=== PATIENT | male | born 1955 ===

== ENCOUNTER 2025-03-29 08:39 | Outpatient (AMB) | payer OTHER, SELFPAY ==
--- OUTSIDE RECORDS SUMMARY | 2025-03-29 08:51 | XMS_ITS | Clinical Summary ---
Author Organization [address] [place] [address] Address [address] [place] [address] Phone Care Team Providers Care Line Mechanic Name Role Phone Tristan Cody MD Primary Care Provider [phone] Allergies No known active allergies Active Problems Problem Noted Date Diagnosed Date Fatty liver 03/30/2018 Hyperlipidemia 03/30/2018 Nephrolithiasis 03/30/2018 Overview (10/03/2024): 2016 Sebaceous cyst 03/30/2018 Medical History Medical History Date Comments Sebaceous cyst 03/30/2018 DX:Sebaceous cys t Hyperlipidemia 03/30/2018 DX:Hyperlipidemi a Nephrolithiasis 03/30/2018 DX:Nephrolithias is; COMMENT: 2016 History of poliomyelitis 03/30/2018 DX:Hist ory of poliomyelitis Fatty liver 03/30/2018 DX:Fatty liver Family History Medical History Relation Name Comments Stomach cancer Father No Known Problems Mother Relation Name Status Comments Father (Age 85) Mother Alive Social History Tobacco Use Types Packs/Day Years Used Date Smoking Tobacco: Never Smokeless Tobacco: Never Sex and Gender Information Value Date Recorded Sex Assigned at Not on file Legal Sex Male 11:31 PM EST Gender Identity Not on file Sexual Orientation Not on file Obstetrics History Last Filed Vital Signs Vital Sign Reading Time Taken Comments Blood Pressure 130/60 02/10/2022 9:47 AM EDT Pulse 76 02/10/2022 9:47 AM EDT Temperature - - Respiratory Rate - - Oxygen Saturation - - Inhaled Oxygen Concentration - - Weight 77.1 kg (170 lb) 11/19/2024 8:45 AM EDT Height 167.6 cm (5' 5.98 ) 11/19/2024 8:45 AM ED T Body Mass Index 27.45 11/19/2024 8:45 AM EDT Plan of Treatment Health Maintenance Due Date Last Done Comments Hepatitis A Vaccines (1 of 2 - Risk 2-dose series) 11/13/1975 Hepatitis B Vaccines (1 of 3 - Risk 3-dose series) 2016 RSV Immunization Adult Patients (1 - Risk 60-74 years 1-dose series) 2016 Colorectal Cancer Screening: Colonoscopy 08/01/2022 Falls Risk Assessment 08/01/2022 Medicare Annual Wellness Visit 08/01/2022 Social Influencers of Health Screening 08/01/2022 COVID-19 Vaccine ( season) 2024 02/23/2021, 01/27/2021 Depression Screening 08/29/2024 Influenza Vaccine (#1) 2025 05/19/2016 Cholesterol Screening (Lipid Panel) 01/26/2029 01/27/2024, 01/27/2024, 11/24/2022, Additional history exists DTaP,Tdap,and Td Vaccines (3 - Td or Tdap) 02/22/2032 02/21/2022, 03/08/2019 Hepatitis C Screening Completed 01/18/2022, 018 Pneumococcal Vaccine: 50+ Years Completed 01/27/2024, 11/24/2022 Zoster Vaccines Completed 01/27/2024, 11/24/2022 HIB Vaccines Aged Out No longer eligi ble based on patient's age to complete this topic HPV Vaccines Aged Out No longer eligi ble based on patient's age to complete this topic IPV Vaccines Aged Out No longer eligi ble based on patient's age to complete this topic MMR Vaccines Aged Out No longer eligi ble based on patient's age to complete this topic Meningococcal ACWY Vaccine Aged Out N o longer eligible based on patient's age to complete this topic Meningococcal B Vaccine Aged Out No l onger eligible based on patient's age to complete this topic RSV Immunization Patients Under 20 months Aged Out No longer eligible based on patient's age to complete this topic Varicella Vaccines Aged Out No longer eligible based on patient's age to complete this topic Insurance MED[place] - [place] [facility] [employer] Care Teams Line Mechanic Relationship Specialty Start Date End Date Tristan Cody MD [address] [place] [address] PCP - General Internal Medicine 09/25/24
--- OUTSIDE RECORDS SUMMARY | 2025-03-29 08:51 | XMS_ITS | Clinical Summary ---
Author Organization [facility] Address [address] [place] [address] Care Team Providers Care Correctional Officer Lieutenant Name Role Phone Ena Prieto NP Primary Care Provider [phone] Source Comments PLEASE NOTE, if this patient is a minor, it may be UNLAWFUL to discuss sensitive information that is contained in these records (such as FAMILY PLANNING, MENTAL HEALTH or SUBSTANCE ABUSE) with the minor patient's parent or other person without the patient's specific authorization.[facility] Allergies No known active allergies Medications traZODone (DESYREL) 50 mg tabletIndications: Other insomnia TOME 1 TABLETA POR VIA ORAL TODOS LOS KEYES AL ACOSTARSE 90 Tablet 08/30/19 25 Active MISCELLANEOUS MEDICAL SUPPLY MISCIndications:Ot her urinary incontinence by miscellaneous route 4 (four) times daily Pull ups medium size Diagnosis 39.498 120 Each 3 09/03/19 25 Active MISCELLANEOUS MEDICAL SUPPLY MISCIndications:Ot her urinary incontinence by miscellaneous route 4 (four) times daily Wipes Medium size Diagnosis 39.498 120 Each 3 09/03/19 25 Active tolterodine (DETROL) 2 mg tabletIndications: Other urinary incontinence TOME 1 TABLETA POR VIA ORAL DOS VECES AL JULI 180 Tablet 1 09/26/19 25 Active benzocaine-menthoL (CEPACOL SORE THROAT, SUKHDEV-MEN,) 15-3.[address] 1 Lozenge in mouth every 2 (two) hours as needed (sore throat). 16 Lozenge 02/12/20 25 Active tamsulosin (FLOMAX) 0.4 mg 24 hr capsule Take 1 Capsule by mouth once daily TOME 1 CAPSULA POR VIA ORAL ONCE DAILY. 90 Capsule 1 02/12/20 25 Active fluticasone (FLONASE) 50 mcg/actuation nasal sprayIndications:P ND (post-nasal drip) Place 1 [place] in both nostrils once daily. 16 g 02/12/20 25 Active atorvastatin (LIPITOR) 20 mg tabletIndications: Mixed hyperlipidemia TOME 1 TABLETA POR VIA ORAL TODOS [place] 90 Tablet 02/26/20 25 Active Active Problems Problem Noted Date Diagnosed Date Multinodular goiter 02/01/2024 Other mixed anxiety disorders 11/24/2022 Overview (11/24/2022): Sees N Internal hemorrhoid 10/29/2015 Overview (10/29/2015): [facility] 10[facility]16[facility]15[place] Small non-bleeding grade 1 Internal Hemorrhoids were noted. Rec f/u in 10yrs Type 2 diabetes mellitus wit hout complication, without long-term current use of insulin ([facility]) 06/13/2015 Overview (03/02/2024): Last A1c 6.0 Hyperlipidemia 06/13/2015 Benign prostatic hyperplasia without lower urinary tract symptoms 06/12/2015 Overview (06/12/2015): He was told to have enlarged prostate with elevated PSA level in CT abt 2 yrs ago. He had blood in urine abt 2 yrs ago. None after that. No Bx of prostate as per pt. C/o burning, freqency, urgency. No significant nocturia. No meds for prostate so far. Uses some natural medicine. History of nephrolithiasis 06/12/2015 Overview (06/12/2015): Last episode abt 2-[address] Was told to have stones in one kidney and cyst on other kidney( not sure which side). Fatty liver 06/12/2015 Overview (06/12/2015): Was told in CT abt 3 yrs ago, as per pt he used some meds as well. Was told that it was sec to some parasite. He was heavy alcoholic in the past but not recently( last 10 yrs). H/O poliomyelitis 06/12/2015 Resolved Problems Problem Noted Date Diagnosed Date Resolved Date Dyslipidemia (high LDL; low HDL) 03/14/2018 01/27/2024 Renal cyst 11/15/2016 03/08/2019 Left epididymitis 08/09/2016 03/08/2019 Overview (08/17/2016): Went to [facility] ER on 07/01/16 with dysuria, testicular pain and swelling. He has had subjective fevers and chills. UA significant for UTI. US Testicular done 07/01/16 at [facility] . Impression: Left epididymitis. No testicular torsion or intratesticular focal mass lesion identified on this exam. He was discharged with Cipro to f/u as outpt Constipation 05/19/2016 06/20/2018 Urinary tract infection with hematuria 03/05/2016 03/08/2019 Overview (11/11/2016): 02/2016: Cx grew ESBL E coli. >>He went to [facility] ER on 10/25/16 with abd pain, urgency, hematuria. Subjective fever, chills. Had labs, CT scan and was discharged with po Cipro to f/u with urology as outpt. CT abd/pelvis at [facility] on 10/25/16- Nonobstructing right lower pole renal calculi. Calcifications affecting the seminal vesicles bilaterally, left greater than right suggestive of sequela of prior inflammation. 9.5 cm maximum diameter right renal cyst with displacement of right kidney anteriorly and medially. Degenerative changes within the caudal lumbar spine. Encounters Date Type Department Care Team Description 02/12/2025 Results Follow-Up [address] [phone] Ena Prieto NP 02/11/2025 10:40 AM EDT Office Visit [address] [phone] Ena Prieto NP from Last 3 Months Immunizations Immunization Administration Dates Next Due INFLUENZA, SEASONAL, INJECTABLE 05/19/2016 PNEUMOCOCCAL CONJUGATE PCV 20 (Prevnar 20) 01/26 PNEUMOCOCCAL POLYSACCHARIDE PPV23 (Pneumovax 23) 11/24/2022 TDAP 02/21/2022,03/08/2019 ZOSTER VACCINE, RECOMBINANT (SHINGRIX) ,11/24/2022 Family History Medical History Relation Name Comments Cancer Brother lymphoma Cancer Father stomach ca Diabetes Father Hypertension Father High Cholesterol Mother Hypertension Mother Cancer Sister Lymphoma, Breas t ca Relation Name Status Comments Brother Father Mother Alive Sister Alive Social History Tobacco Use Types Packs/Day Years Used Date Smoking Tobacco: Never Passive Smoke Exposure: Never Smokeless Tobacco: Never Alcohol Use Standard Drinks/Week Comments Yes 0 (1 standard drink = 0.6 oz pure alcohol) occasionally 1-2 glasses of wine Social Connections Answer Date Recorded Connectedness 1 01/27/2024 Financial Resource Strain Answer Date R ecorded Financial Resource Strain 1 2023 Stress Answer Date Recorded Stress 1 01/27/2024 Physical Activity Answer Date Recorded Physical Activity 0 04/22/2019 Food Insecurity Answer Date Recorded Food 1 01/27/2024 Transportation Needs Answer Date Record ed Transportation 1 01/27/2024 Housing Stability Answer Date Recorded Housing 1 01/27/2024 Safety and Environment Answer Date Heber rded Safety 1 01/27/2024 Utilities Answer Date Recorded Utilities 1 01/27/2024 Employment Answer Date Recorded Stress 0 01/27/2024 Sex and Gender Information Value Date Recorded Sex Assigned at Male 08/08/2017 9:40 AM PST Legal Sex Male 11:19 AM PDT Gender Identity Male 08/08/2017 9:40 AM PST Sexual Orientation Straight 08/08/2017 9: 40 AM PST Occupation Industry Job Start Date Job End Date not employed now Not on file Not on file Not on file Last Filed Vital Signs Vital Sign Reading Time Taken Comments Blood Pressure 110/80 02/11/2025 10:36 AM EDT Pulse 61 02/11/2025 10:36 AM EDT Temperature 37.1 C (98.7 F) 02/11/2025 10:36 AM EDT Respiratory Rate 16 02/11/2025 10:36 AM EDT Oxygen Saturation 97% 09/03/2024 11:04 AM EST Inhaled Oxygen Concentration - - Weight 72.7 kg (160 lb 3.2 oz) 02/11/2025 10:36 AM EDT Height 165.1 cm (5' 5 ) 02/11/2025 10:36 AM EDT Body Mass Index 26.66 02/11/2025 10:36 AM EDT Plan of Treatment Upcoming Encounters Date Type Department Care Team (Late st Contact Info) Description 05/21/2025 1:00 PM EDT Office Visit [facility] [address] [place] [phone] Jesús Hermosillo RHD [address] [place] [address] Health Maintenance Due Date Last Done Comments Diabetes Foot Exam 1956 Urine Albumin Creatinine Ratio Screening 1956 Retinopathy Screening 1969 Medicare Annual Wellness Visit 1974 CT Colonography 2001 FIT/gFOBT 2001 Fecal DNA 2001 Flexible Sigmoidoscopy 2001 Imm-Hepatitis B (1 of 3 - Risk 3-dose series) 2016 Serum Creatinine 01/26/2025 01/27/2024, , 11/24/2022, Additional history exists Falls Prevention 03/02/2025 03/02/2024, , 02/05/2022, Additional history exists Imm-Influenza (#1) 2025 05/19/2016 Dental Prophy 05/20/2025 11/15/2024, 04/29, 03/22/2023, Additional history exists Hemoglobin A1c 08/13/2025 02/11/2025, 11/0 03/2023, 11/24/2022, Additional history exists Imm-Hepatitis A (1 of 2 - Risk 2-dose series) 09/03/2025 Postponed from 11/13/1975 (Patient postponement) Colonoscopy 10/16/2025 10/16/2015, 10/16/2015 Colorectal Cancer Screening 10/16/2025 Dental BW 11/17/2025 11/15/2024, 07/2 12/2022, 09/22/2022 Dental Examination 11/17/2025 11/15/2024, 0 05/16/2024, 05/16/2024, Additional history exists Dental Perio Charting 11/17/2025 11/15/2024 , 03/22/2023, 09/22/2022 Hypertension Screening (#1) 02/11/2026 Lipid Screening 02/11/2026 02/11/2025, 0508/2023, 07/06/2023, Additional history exists Tobacco Screening 02/11/2026 02/11/2025, 01/27/2024 Dental FMX/Pano 11/17/2029 11/15/2024 Imm-DTaP/Tdap/Td (3 - Td or Tdap) 02/22/2032 02/21/2022, 03/08/2019 [id number] Discontinued 02/23/2021, 01/27/2021 Hepatitis B Screening Completed 01/18/2022 Hepatitis C Screening Completed 01/18/2022, 018 HIV Screening Discontinued 07/06/2023, 01/18/2022 Syphilis Screening Discontinued 07/06/2023 Imm-Pneumococcal 50+ Completed 01/27/2024, 11/25/19 Imm-Zoster, Recombinant Completed 01/27/2024, 11/24 Alcohol and Drug Screen Completed 02/12/20, 09/03/2024, 01/27/2024, Additional history exists Depression Annual Screen Completed 02/11/2025, 01/2025 Procedures Procedure Name Priority Date/Time Associated Diagnosis Comments LIPID PANEL Routine 02/11/2025 11:01 AM EDT Mixed hyperlipidemia HEMOGLOBIN GLYCOSYLATED A1C Routine 02/11/2025 11:01 AM EDT Prediabetes COMP PERIODONTAL EVALUATION - NEW/EST PATIENT Routine 11/15/2024 1:40 PM EDT Encounter for dental examination INTRAORAL - COMP SERIES OF RADIOGRAPHIC IMAGES Routine 11/15/2024 1:40 PM EDT Encounter for dental examination PROPHYLAXIS - ADULT Routine 11/15/2024 1 :40 PM EDT Encounter for dental examination PERIODIC ORAL EVALUATION ESTABLISHED PATIENT Routine 11/15/2024 1:40 PM EDT Encounter for dental examination COMPREHENSIVE METABOLIC PANEL Routine 01/27/2024 9:35 AM EDT Routine general medical examination at a [facility] care facility HIV /2 AG & AB W/RFLX (4TH GEN) Routine 07/06/2023 11:44 AM EST Screen for STD (sexually transmitted disease) FTA-ABS, SERUM Routine 07/06/2023 11:44 AM EST Screen for STD (sexually transmitted disease) ACUTE HEPATITIS PANEL W/RFLX Routine 01/18/2022 4:13 PM EDT Body aches COLONOSCOPY Routine 10/16/2015 from Last 3 Months or Most Recently Relevant to Health Maintenance Results * (ABNORMAL) HEMOGLOBIN GLYCOSYLATED A1C Routine (02/11/2025 11:01 AM EDT) HEMOGLOBIN A1C 6.8(H) <5.7 % [facility] Comment: For someone without known diabetes, a hemoglobin A1c value of 6.5% or greater indicates that they may have diabetes and this should be confirmed with a follow-up test. For someone with known diabetes, a value <7% indicates that their diabetes is well controlled and a value greater than or equal to 7% indicates suboptimal control. A1c targets should be individualized based on duration of diabetes, age, comorbid conditions, and other considerations. Currently, no consensus exists regarding use of hemoglobin A1c for diagnosis of diabetes for children. Blood Blood / Unknown 02/11/2025 1 1:01 AM EDT 02/11/2025 11:01 AM EDT Narrative [facility] - 02/12/2025 12:16 PM EDT FASTING:YES us Ena Prieto NP LAB - BLOOD DRAW Edited Resu lt - Final [facility] [address] [place] [id number], [facility] [address] [place] [phone] * (ABNORMAL) LIPID PANEL Routine (02/11/2025 11:01 AM EDT) CHOLESTEROL, TOTAL 157 <200 mg/dL [facility] HDL CHOLESTEROL 31(L) > OR = 40 mg/dL [facility] TRIGLYCERIDES 157(H) <150 mg/dL [facility] LDL-CHOLESTEROL 101(H) 99 mg/dL (calc) [facility] Comment: Reference range: <100 Desirable range <100 mg/dL for primary prevention; <70 mg/dL for patients with CHD or diabetic patients with > or = 2 CHD risk factors. LDL-C is now calculated using the Suzanne calculation, which is a validated novel method providing better accuracy than the Friedewald equation in the estimation of LDL-C. Jr SS et al. SIRENA. 2013;310(19): 3236-4725 (http://education.Qunar.com/faq/BXN623) CHOL/HDLC RATIO 5.1(H) <5.0 (calc) [facility] NON-HDL CHOLESTEROL 126 <130 mg/dL (calc) [facility] Comment: For patients with diabetes plus 1 major ASCVD risk factor, treating to a non-HDL-C goal of <100 mg/dL (LDL-C of <70 mg/dL) is considered a therapeutic option. Blood Blood / Unknown 02/11/2025 1 1:01 AM EDT 02/11/2025 11:01 AM EDT Narrative [facility] - 02/12/2025 12:16 PM EDT FASTING:YES Ena Prieto NP LAB - BLOOD DRAW Final Resul t [facility] [address] [place] [phone], [facility] [address] [place] [phone] * (ABNORMAL) COMPREHENSIVE METABOLIC PANEL (01/27/2024 9:35 AM EDT) GLUCOSE 102(H) 65 - 99 mg/dL [facility] Comment: Fasting reference interval For someone without known diabetes, a glucose value between 100 and 125 mg/dL is consistent with prediabetes and should be confirmed with a follow-up test. UREA NITROGEN (BUN) 16 7 - 25 mg/dL [facility] CREATININE (blood) 0.89 0.70 - 1.35 mg/dL [facility] EGFR 94 > OR = 60 mL/min/1. 73m2 [facility] BUN/CREATININE RATIO SEE NOTE: 6 [facility] Comment: Not Reported: BUN and Creatinine are within reference range. SODIUM 138 135 - 146 mmol/L [facility] POTASSIUM 4.3 3.5 - 5.3 mmol/L [facility] CHLORIDE 105 98 - 110 mmol/L [facility] CARBON DIOXIDE 26 20 - 32 mmol/L [facility] CALCIUM 9.5 8.6 - 10.3 mg/dL [facility] PROTEIN, TOTAL 7.4 6.1 - 8.1 g/dL [facility] ALBUMIN 4.4 3.6 - 5.1 g/dL [facility] GLOBULIN 3.0 1.9 - 3.7 g/dL (calc) [facility] ALBUMIN/GLOBULI N RATIO 1.5 1.0 - 2.5 (calc) [facility] BILIRUBIN, TOTAL 0.7 0.2 - 1.2 mg/dL [facility] ALKALINE PHOSPHATASE 51 35 - 144 U/L [facility] AST 16 10 - 35 U/L [facility] ALT 25 9 - 46 U/L [facility] Blood Blood / Unknown 01/27/2024 9 :35 AM EDT 01/27/2024 9:36 AM EDT Narrative [facility] - 01/28/2024 1:24 PM EDT FASTING:YES us Ena Prieto NP LAB - BLOOD DRAW Final Resul t [facility] [address] [address], [facility] [address] [address] * HIV 1/2 AG & AB W/RFLX (4TH GEN) (07/06/2023 11:44 AM EST) HIV AG/AB, 4TH GEN NON-REAC TIVE NON-REAC TIVE [facility] Comment: HIV-1 antigen and HIV-1/HIV-2 antibodies were not detected. There is no laboratory evidence of HIV infection. PLEASE NOTE: This information has been disclosed to you from records whose confidentiality may be protected by state law. If your state requires such protection, then the state law prohibits you from making any further disclosure of the information without the specific written consent of the person to whom it pertains, or as otherwise permitted by law. A general authorization for the release of medical or other information is NOT sufficient for this purpose. For additional information please refer to http://education.[employer]/faq/DDQ886 (This link is being provided for informational/ educational purposes only.) The performance of this assay has not been clinically validated in patients less than 2 years old. Blood Blood / Unknown 07/06/2023 1 1:44 AM EST 07/06/2023 11:44 AM EST Tristan Cody MD LAB - BLOOD DRAW Final Result Performing Organization Address City/[facility]/ZIP Co de Phone Number [facility] [address] [address], [facility] [address] [phone] * FTA-ABS, SERUM (07/06/2023 11:44 AM EST) FTA-ABS Nonreactive Nonreactive [facility] Comment: The FTA-ABS is a treponemal assay that is intended to be used with other tests (e.g., RPR) as part of a diagnostic algorithm in the diagnosis of syphilis. Blood Blood / Unknown 07/06/2023 1 1:44 AM EST 07/06/2023 11:44 AM EST Tristan Cody MD LAB - BLOOD DRAW Final Result Performing Organization Address City/[facility]/ZIP Co de Phone Number [facility] [address] [address] [place], [place] , [facility] [address] [place], [place] * HEPATITIS PANEL W/RFLX (01/18/2022 4:13 PM EDT) HEPATITIS B SURFACE ANTIGEN NON-REACT NAVYA NON-REACT NAVYA [facility] HEPATITIS C ANTIBODY NON-REACT NAVYA NON-REACT NAVYA [facility] SIGNAL TO CUT-OFF 0.08 <1.00 [facility] Comment: HCV antibody was non-reactive. There is no laboratory evidence of HCV infection. In most cases, no further action is required. However, if recent HCV exposure is suspected, a test for HCV RNA (test code 54945) is suggested. For additional information please refer to http://[employer]/faq/TGU65i2 (This link is being provided for informational/ educational purposes only.) HEPATITIS A IGM ANTIBODY NON-REACT NAVYA NON-REACT NAVYA [facility] COMMENT [facility] HEPATITIS B CORE IGM ANTIBODY NON-REACT NAVYA NON-REACT NAVYA [facility] Blood Blood / Unknown 01/18/2022 4 :13 PM EDT 01/18/2022 4:13 PM EDT Narrative [facility] - 01/19/2022 2:03 PM EDT FASTING:NO For additional information, please refer to http://Surveypal.[employer]/faq/SLV019 (This link is being provided for informational/ educational purposes only.) Irvin Yates PA-C LAB - BLOOD DRAW Final Result [facility] [address] [address], [facility] [address] [address] * COLONOSCOPY (10/16/2015) Provider [facility] PROCEDURES Final Result from Last 3 Months or Most Recently Relevant to Health Maintenance Insurance [facility] [employer] Member Subscriber Plan / Payer (Ef fective 2022-Present) Name:Ryan Moser Relation to Subscriber:Self Name:Ryan Moser Payer ID:[id number] (NAIC) Group ID:Not on file Type:Medicaid Address: [place] [id number] [facility] Care Teams Correctional Officer Lieutenant Relationship Specialty Start Date End Date Ena Prieto NP [address] [place] [address] PCP - General Internal Medicine 02/11/25
--- NOTE | 2025-03-29 09:05 | A.OFFVIS_ITS ---
Intake Visit Reasons: Urinary Incontinence Intake Note: New patient presents today for initial visit for urinary incontinence Urology Medication:none Blood Thinner:none Antibiotic Allergies:none PVR:162ml Channel Rebuilder Required: No Channel Rebuilder Services: Channel Rebuilder Offered & Declined Allergies No Known Allergies Allergy (Verified 03/29/25 09:06) HPI Comments Details: 03/29/25- Ryan is here with his daughter who interprets for him. History of Present Illness - The patient is a 69-year-old male presenting with urinary incontinence and prostate concerns. - Urinary incontinence is a daily issue, not improved by tamsulosin and tolterodine. - Prostate concerns are present, with urinalysis showing no infection or hematuria. - History of kidney stones, with an ultrasound planned for further evaluation. Results - Urinalysis: No blood or signs of infection - Bladder scan: Post-void residual volume of 162 mL Plan - Ultrasound of the kidneys, bladder, and prostate - PSA screening, fu office - Cystoscopy PFS Medical History Muscle spasm of back Fatty liver History of poliomyelitis Nephrolithiasis Hyperlipidemia Surgical History No history of previous surgery Family History Father Stomach cancer Review of Systems Const All systems reviewed & are unremarkable except as noted in HPI and below Reports no additional complaints Eyes Reports no additional complaints ENT Reports no additional complaints Card Reports no additional complaints Resp Reports no additional complaints GI Reports no additional complaints Reports as per HPI Musc Reports no additional complaints Skin/Breast Reports system reviewed and no additional complaints, except as documented Neuro Reports no additional complaints Psych Reports no additional complaints Endo Reports no additional complaints Paco/Lymph Reports no additional complaints Aller/Immun Reports no additional complaints Assessment & Plan Assessment & Plan (1) BPH loc w urin obs/LUTS: Code(s): N40.1 - Benign prostatic hyperplasia with lower urinary tract symptoms Category: Medical (2) Urinary incontinence: Code(s): R32 - Unspecified urinary incontinence Category: Medical (3) History of kidney stones: Code(s): Z87.442 - Personal history of urinary calculi Category: Medical Plan Plan - Ultrasound of the kidneys, bladder, and prostate - PSA screening, fu office - Cystoscopy Orders: Orders PSA,Total (Free>4and<10) Today N40.1 - Benign prostatic hyperplasia with lower urinary tract symptoms, R32 - Unspecified urinary incontinence US retroperitoneal comp Today N40.1 - Benign prostatic hyperplasia with lower urinary tract symptoms, R32 - Unspecified urinary incontinence Patient Instructions: The patient had an opportunity to ask questions regarding treatment plan. The patient expressed understanding and agreement with the above treatment plan. The patient is aware they should contact our office by phone for worsening of their current condition or the appearance of new symptoms. Compliance is encouraged with any medications and followup testing that is ordered. It is a privilege to be allowed the opportunity to participate in the urologic care of your patient. If you have any questions or concerns regarding treatment for the above conditions please do not hesitate to contact me. The office telephone contact is [phone]. This note is constructed in part using voice recognition software. While every effort has been made to ensure accuracy courier driver errors may have been included. Yours sincerely, Elsie Cole MD Scribe Plan - Not visible on output: Patient was informed and verbally consented to the use of an ambient scribe for clinic note documentation during this visit. Coding Level of Care Code New Pt Level 4 (85760) Diagnoses BPH loc w urin obs/LUTS N40.1 Urinary incontinence R32 History of kidney stones Z87.442
== END 2025-03-29 09:57 | disposition home or self-care (01) ==
LOC: HO.HUSH 08:40
PROVIDERS: PCP Internal Medicine; Visit Provider Urology
DX: N40.1 Benign prostatic hyperplasia with lower urinary tract symptoms (principal); R32 Unspecified urinary incontinence; Z87.442 Personal history of urinary calculi; Z13.9 Encounter for screening, unspecified
CPT/HCPCS: 99204

== ENCOUNTER → 2025-03-29 08:39 | Outpatient (BNVA) | payer OTHER, SELFPAY | PROVIDERS: PCP Internal Medicine; Visit Provider Urology | DX: N40.1 Benign prostatic hyperplasia with lower urinary tract symptoms (principal); R32 Unspecified urinary incontinence; Z87.442 Personal history of urinary calculi | CPT/HCPCS: 81003; 99202 ==

== ENCOUNTER 2025-05-14 14:27 | Outpatient (REF) | payer OTHER, SELFPAY ==
--- NOTE | ~2025-05-14 | US_ITS ---
CLINICAL HISTORY: R32 - Unspecified urinary incontinence --- Additional Notes or Special Instructions: please measure prostate US Renal Comparison: None provided Findings: Right kidney normal size and echotexture, 11.8 cm length. Left kidney normal size and echotexture, 10.7 cm length. No collecting system dilatation of either kidney. There is a 13.4 x 8.2 x 12.0 cm simple appearing cyst arising from the right kidney. There are multiple small calculi within the left kidney, the largest measuring 5 mm in size. Normal color Doppler. Mild thickening of the bladder wall. Prevoid volume 197 mL. Postvoid volume 61 mL. Bilateral ureteral jets are visualized. Prostate volume estimated at 22.2 mL. IMPRESSION: 1. No acute abnormality of the kidneys. 2. Prostate volume estimated at 22.2 mL 3. There are small nonobstructing calculi within the left kidney. 4. There is a 13.4 cm simple appearing cyst arising from the right kidney. 5. Mild thickening of the bladder wall. This may be related to chronic bladder outlet obstruction. Recommend correlation with urinalysis to exclude cystitis. 3. Mild urinary retention. This document has been electronically signed by: Leena Foss MD on 05/15/2025 12:36:11
--- OUTSIDE RECORDS SUMMARY | 2025-05-14 18:13 | XMS_ITS | Clinical Summary ---
Author Organization [facility] Address [address] [place] [address] Care Team Providers Care Feed Mill Operator Name Role Phone Ena Prieto NP Primary Care Provider [phone] Source Comments PLEASE NOTE, if this patient is a minor, it may be UNLAWFUL to discuss sensitive information that is contained in these records (such as FAMILY PLANNING, MENTAL HEALTH or SUBSTANCE ABUSE) with the minor patient's parent or other person without the patient's specific authorization.[facility] Allergies No known active allergies Medications traZODone (DESYREL) 50 mg tabletIndications :Other insomnia TOME 1 TABLETA POR VIA ORAL TODOS [place] AL ACOSTARSE 90 Tablet 025 Active MISCELLANEOUS MEDICAL SUPPLY MISCIndications:O ther urinary incontinence by miscellaneous route 4 (four) times daily Pull ups medium size Diagnosis 39.498 120 Each 3 025 Active MISCELLANEOUS MEDICAL SUPPLY MISCIndications:O ther urinary incontinence by miscellaneous route 4 (four) times daily Wipes Medium size Diagnosis 39.498 120 Each 3 025 Active tolterodine (DETROL) 2 mg tabletIndications :Other urinary incontinence TOME 1 TABLETA POR VIA ORAL DOS VECES AL JULI 180 Tablet 1 025 Active benzocaine-mentho L (CEPACOL SORE THROAT, SUKHDEV-MEN,) 15-3.[address] 1 Lozenge in mouth every 2 (two) hours as needed (sore throat). 16 Lozenge 025 Active tamsulosin (FLOMAX) 0.4 mg 24 hr capsule Take 1 Capsule by mouth once daily TOME 1 CAPSULA POR VIA ORAL ONCE DAILY. 90 Capsule 1 025 Active atorvastatin (LIPITOR) 20 mg tabletIndications :Mixed hyperlipidemia TOME 1 TABLETA POR VIA ORAL TODOS [place] 90 Tablet 025 Active fluticasone (FLONASE) 50 mcg/actuation nasal sprayIndications: PND (post-nasal drip) ROCIAR 1 VEZ EN CADA FOSA NASAL TODOS [place] 48 mL 1 025 Active fluticasone (FLONASE) 50 mcg/actuation nasal sprayIndications: PND (post-nasal drip) ROCIAR 1 VEZ EN CADA FOSA NASAL TODOS [place] 24 mL 1 025 2024 Discontinued Active Problems Problem Noted Date Diagnosed Date Multinodular goiter 02/01/2024 Other mixed anxiety disorders 11/24/2022 Overview (11/24/2022): Sees N Internal hemorrhoid 10/29/2015 Overview (10/29/2015): colonoscopy on 10/16/15([facility]): Small non-bleeding grade 1 Internal Hemorrhoids were noted. Rec f/u in 10yrs Type 2 diabetes mellitus wit hout complication, without long-term current use of insulin ([facility]) 06/13/2015 Overview (03/02/2024): Last A1c 6.0 Hyperlipidemia 06/13/2015 Benign prostatic hyperplasia without lower urinary tract symptoms 06/12/2015 Overview (06/12/2015): He was told to have enlarged prostate with elevated PSA level in [place] abt 2 yrs ago. He had blood in urine abt 2 yrs ago. None after that. No Bx of prostate as per pt. C/o burning, freqency, urgency. No significant nocturia. No meds for prostate so far. Uses some natural medicine. History of nephrolithiasis 06/12/2015 Overview (06/12/2015): Last episode abt 2-3 yrs ago in [place]. Was told to have stones in one kidney and cyst on other kidney( not sure which side). Fatty liver 06/12/2015 Overview (06/12/2015): Was told in [place] abt 3 yrs ago, as per pt [...] epididymitis 08/09/2016 03/08/2019 Overview (08/17/2016): Went to [facility] ER on 07/01/16 with dysuria, testicular pain and swelling. He has had subjective fevers and chills. UA significant for UTI. US Testicular done 07/01/16 at [facility] . Impression: Left epididymitis. No testicular torsion or intratesticular focal mass lesion identified on this exam. He was discharged with Cipro to f/u as outpt Constipation 05/19/2016 06/20/2018 Urinary tract infection with hematuria 03/05/2016 03/08/2019 Overview (11/11/2016): 02/2016: Cx grew ESBL E coli. >>He went to [facility] ER on 10/25/16 with abd pain, urgency, hematuria. Subjective fever, chills. Had labs, CT scan and was discharged with po Cipro to f/u with urology as outpt. CT abd/pelvis at [facility] on 10/25/16- Nonobstructing right lower pole renal calculi. Calcifications affecting the seminal vesicles bilaterally, left greater than right suggestive of sequela of prior inflammation. 9.5 cm maximum diameter right renal cyst with displacement of right kidney anteriorly and medially. Degenerative changes within the caudal lumbar spine. Encounters Date Type Department Care Team Description 02/12/2025 Results Follow-Up [address] [place] [address] Ena Prieto NP 02/11/2025 10:40 AM EDT Office Visit [address] [address] Ena Prieto NP from Last 3 Months [...] Description 05/21/2025 1:00 PM EDT Office Visit [facility] [address] [place] [address] Jesús Hermosillo RHD [address] [place] [address] Health Maintenance Due Date Last Done Comments [...] Screening (#1) 02/11/2026 Lipid Screening 02/11/2026 02/11/2025, 12/29, 07/06/2023, Additional history exists Tobacco Screening 02/11/2026 02/11/2025, 01/27/2024 Dental FMX/Pano 11/17/2029 11/15/2024 Imm-DTaP/Tdap/Td (3 - Td or Tdap) 02/22/2032 02/21/2022, 03/08/2019 [id number] Discontinued 02/23/2021, 01/27/2021 Hepatitis B Screening Completed 01/18/2022 Hepatitis C Screening Completed 01/18/2022, 018 HIV Screening Discontinued 07/06/2023, 01/18/2022 Syphilis Screening Discontinued 07/06/2023 Imm-Pneumococcal 50+ Completed 01/27/2024, 11/25/19 Imm-Zoster, Recombinant Completed 01/27/2024, 11/24 Alcohol and Drug Screen Completed 02/12/20, 09/03/2024, 01/27/2024, Additional history exists Depression Annual Screen Completed 02/11/2025, 01/2025 Procedures Procedure Name Priority Date/Time Associated Diagnosis Comments REFERRAL SCANNED DOCUMENT 04/16/2025 3:00 AM EDT REFERRAL SCANNED DOCUMENT 03/29/2025 3:00 AM EDT REFERRAL TO UROLOGY Routine 03/29/2025 3 :00 AM EDT Benign prostatic hyperplasia without lower urinary tract symptoms LIPID PANEL Routine 02/11/2025 11:01 AM EDT [...] EDT Routine general medical examination at a [facility] HIV 1/2 AG & AB W/RFLX (4TH GEN) Routine 07/06/2023 11:44 AM EST Screen for STD (sexually transmitted disease) FTA-ABS, SERUM Routine 07/06/2023 11:44 AM EST Screen for STD (sexually transmitted disease) ACUTE HEPATITIS PANEL W/RFLX Routine 01/18/2022 4:13 PM EDT Body aches COLONOSCOPY Routine 10/16/2015 from Last 3 Months or Most Recently Relevant to Health Maintenance Results * REFERRAL SCANNED DOCUMENT (04/16/2025 3:00 AM EDT) Only the most recent of2 resultswithin the time period is included. 04/16/2025 3:00 AM EDT [facility] Provider Default SCAN REFERRAL Final Resu lt * REFERRAL TO UROLOGY (03/29/2025 3:00 AM EDT) 03/29/2025 3:00 AM EDT Ena Prieto NP REFERRAL Final Result * (ABNORMAL) HEMOGLOBIN GLYCOSYLATED A1C Routine (02/11/2025 11:01 AM EDT) HEMOGLOBIN A1C 6.8(H) <5.7 % [employer] [facility] Comment: For someone without known diabetes, a [...] AM EDT 02/11/2025 11:01 AM EDT Narrative [employer] - 02/12/2025 12:16 PM EDT FASTING:YES us Ena Prieto NP LAB - BLOOD DRAW Edited Resu lt - Final [employer] [address] [place] [address], [employer] [address] [place] [phone] * (ABNORMAL) LIPID PANEL Routine (02/11/2025 11:01 AM EDT) [facility] Signature CHOLESTEROL, TOTAL 157 <200 mg/dL [employer] HDL CHOLESTEROL 31(L) > OR = 40 mg/dL [employer] TRIGLYCERIDES 157(H) <150 mg/dL [employer] LDL-CHOLESTEROL 101(H) 99 mg/dL (calc) [employer] Comment: Reference range: <100 Desirable range <100 mg/dL for primary prevention; <70 mg/dL for patients with CHD or diabetic patients with > or = 2 CHD risk factors. LDL-C is now calculated using the Jr-Lida calculation, which is a validated novel method providing better accuracy than the Friedewald equation in the estimation of LDL-C. Jr SS et al. SIRENA. 2013;310(19): 2647-4516 (http://education.Save22.DeskActive/faq/ENF100) CHOL/HDLC RATIO 5.1(H) <5.0 (calc) [employer] NON-HDL CHOLESTEROL 126 <130 mg/dL (calc) [employer] Comment: For patients with diabetes plus 1 major ASCVD risk factor, treating to a non-HDL-C goal of <100 mg/dL (LDL-C of <70 mg/dL) is considered a therapeutic option. Blood Blood / Unknown 02/11/2025 1 1:01 AM EDT 02/11/2025 11:01 AM EDT Narrative [employer] [facility] - 02/12/2025 12:16 PM EDT FASTING:YES us Ena Prieto NP LAB - BLOOD DRAW Final Resul t [facility] [address] [address], [facility] [address] [place] [address] * (ABNORMAL) COMPREHENSIVE METABOLIC PANEL (01/27/2024 9:35 AM EDT) GLUCOSE 102(H) 65 - 99 mg/dL [employer] [facility] Comment: Fasting reference interval For someone without known diabetes, a glucose value between 100 and 125 mg/dL is consistent with prediabetes and should be confirmed with a follow-up test. UREA NITROGEN (BUN) 16 7 - 25 mg/dL [facility] CREATININE (blood) 0.89 0.70 - 1.35 mg/dL [employer] [facility] EGFR 94 > OR = 60 mL/min/1. 73m2 [employer] [facility] BUN/CREATININE RATIO SEE NOTE: [employer] [facility] Comment: Not Reported: BUN and Creatinine are within reference range. SODIUM 138 135 - 146 mmol/L [facility] POTASSIUM 4.3 3.5 - 5.3 mmol/L [employer] [facility] CHLORIDE 105 98 - 110 mmol/L [employer] [facility] CARBON DIOXIDE 26 20 - 32 mmol/L [employer] [facility] CALCIUM 9.5 8.6 - 10.3 mg/dL [employer] [facility] PROTEIN, TOTAL 7.4 6.1 - 8.1 g/dL [employer] [facility] ALBUMIN 4.4 3.6 - 5.1 g/dL [employer] GLOBULIN 3.0 1.9 - 3.7 g/dL (calc) [facility] ALBUMIN/GLOBULI N RATIO 1.5 1.0 - 2.5 (calc) [employer] [facility] BILIRUBIN, TOTAL 0.7 0.2 - 1.2 mg/dL [employer] ALKALINE PHOSPHATASE 51 35 - 144 U/L [facility] AST 16 10 - 35 U/L [facility] ALT 25 9 - 46 U/L [facility] Blood Blood / Unknown 01/27/2024 9 :35 AM EDT 01/27/2024 9:36 AM EDT Narrative [facility] - 01/28/2024 1:24 PM EDT FASTING:YES Ena Prieto NP LAB - BLOOD DRAW Final Resul t Performing Organization Address [facility]/ZIP Co de Phone Number [facility] [address] [address], [facility] [address] [address] * HIV 1/2 AG & AB W/RFLX (4TH GEN) (07/06/2023 11:44 AM EST) HIV AG/AB, 4TH GEN NON-REAC TIVE NON-REAC TIVE [facility] Comment: HIV-1 antigen and HIV-1/HIV-2 antibodies [...] purpose. For additional information please refer to http://education.Hmall.ma.DeskActive/faq/WCL255 (This link is being provided for informational/ educational purposes only.) The performance of this assay has not been clinically validated in patients less than 2 years old. Blood Blood / Unknown 07/06/2023 1 1:44 AM EST 07/06/2023 11:44 AM EST Tristan Cody MD LAB - BLOOD DRAW Final Result Performing Organization Address [facility]/ZIP Co de Phone Number [facility] [address] [address], [place] [employer] [address] [address] * FTA-ABS, SERUM (07/06/2023 11:44 AM EST) Pathologist [facility] FTA-ABS Nonreactive Nonreactive [facility] Comment: The FTA-ABS is a treponemal assay that is intended to be used with other tests (e.g., RPR) as part of a diagnostic algorithm in the diagnosis of syphilis. Blood Blood / Unknown 07/06/2023 1 1:44 AM EST 07/06/2023 11:44 AM EST Tristan Cody MD LAB - BLOOD DRAW Final Result [facility] [address] [place], [place] , [facility] [address] [place], [place] * HEPATITIS PANEL W/RFLX (01/18/2022 4:13 PM EDT) Pathologist [facility] HEPATITIS B SURFACE ANTIGEN NON-REACT NAVYA NON-REACT NAVYA [facility] HEPATITIS C ANTIBODY NON-REACT NAVYA NON-REACT [employer] [facility] SIGNAL TO CUT-OFF 0.08 <1.00 [facility] Comment: HCV antibody was non-reactive. There is no laboratory evidence of HCV infection. In most cases, no further action is required. However, if recent HCV exposure is suspected, a test for HCV RNA (test code 30244) is suggested. For additional information please refer to http://education.Majitek/faq/NGK55i0 (This link is being provided for informational/ educational purposes only.) HEPATITIS A IGM ANTIBODY NON-REACT NAVYA NON-REACT NAVYA [facility] COMMENT [facility] HEPATITIS B CORE IGM ANTIBODY NON-REACT NAVYA NON-REACT NAVYA [facility] Blood Blood / Unknown 01/18/2022 4 :13 PM EDT 01/18/2022 4:13 PM EDT Narrative [facility] [facility] - 01/19/2022 2:03 PM EDT FASTING:NO For additional information, please refer to http://education.Hmall.ma.DeskActive/faq/GUF261 (This link is being provided for informational/ educational purposes only.) Irvin Yates PA-C LAB - BLOOD DRAW Final Result [facility] [address] [address], [facility] [address] [address] * COLONOSCOPY (10/16/2015) Provider [facility] PROCEDURES Final Result from Last 3 Months or Most Recently Relevant to Health Maintenance Insurance [facility] [employer] [facility] Care Teams Feed Mill Operator Relationship Specialty Start Date End Date Ena Prieto NP [address] [place] [address] PCP - General Internal Medicine 02/11/25
--- OUTSIDE RECORDS SUMMARY | 2025-05-14 18:13 | XMS_ITS | Clinical Summary ---
Author Organization [address] [place] [address] Address [address] [place] [address] Phone Care Team Providers Care Planer Tailer Name Role Phone Tristan Cody MD Primary Care Provider [phone] Allergies No known active allergies Active Problems [...] 08/01/2022 Social Influencers of Health Screening 08/01/2022 Depression Screening 08/29/2024 COVID-19 Vaccine (3 - 2024- season) 2025 02/23/2021, 01/27/2021 Influenza Vaccine (#1) 2025 05/19/2016 Cholesterol Screening [...] [place] [facility] [employer] [employer] Care Teams Planer Tailer Relationship Specialty Start Date End Date Tristan Cody MD [address] [place] [address] PCP - General Internal Medicine 09/25/24
--- OUTSIDE RECORDS SUMMARY | 2025-05-14 18:13 | XMS_ITS | Encounter Summary ---
Author Organization [facility] Address [address] [place] [address] Care Team Providers Care School Treasurer Name Role Phone Ena Prieto NP Primary Care Provider [phone] Encounter Details Date Type Department Care Team (Late st Contact Info) Description 01/04/2022 Dental Interim Note [facility] [address] [place] [phone] Crys Hoff DDS [address] [place] [address] Social History Tobacco Use Types Packs/Day Years Used Date Smoking Tobacco: Never Smokeless Tobacco: Never Alcohol Use Standard Drinks/Week Comments Yes 0 (1 standard drink = 0.6 oz pure alcohol) occasionally 1-2 glasses of wine Social Connections Answer Date Recorded Social Connections and Isolation 0 04/22/2019 Financial Resource Strain Answer Date R ecorded Financial Resource Strain 0 2018 Stress Answer Date Recorded Stress 0 04/22/2019 Physical Activity Answer Date Recorded Physical Activity 0 04/22/2019 Food Insecurity Answer Date Recorded Food 0 04/22/2019 Transportation Needs Answer Date Record ed Transportation 0 04/22/2019 Housing Stability Answer Date Recorded Housing 0 04/22/2019 Safety and Environment Answer Date Heber rded Safety 0 04/22/2019 Utilities Answer Date Recorded Utilities 0 04/22/2019 Employment Answer Date Recorded Employment 0 04/22/2019 Sex and Gender Information Value Date Recorded Sex Assigned at Male 08/08/2017 9:40 AM PST Legal Sex Male 11:19 AM PDT Gender Identity Male 08/08/2017 9:40 AM PST Sexual Orientation Straight 08/08/2017 9: 40 AM PST Occupation Industry Job Start Date Job End Date not employed now Not on file Not on file Not on file COVID-19 Exposure Response Date Recorded In the last 10 days, have jurgen u been in contact with someone who was confirmed or suspected to have Coronavirus/COVID-19? No / Unsure 01/07/2022 1:52 PM EDT documented as of this encounter Plan of Treatment Upcoming Encounters Date Type Department Care Team (Late st Contact Info) Description 05/21/2025 1:00 PM EDT Office Visit [facility] [address] [place] [phone] Jesús Hermosillo RHD [address] [place] [address] documented as of this encounter Visit Diagnoses Not on filedocumented in this encounter Care Teams School Treasurer Relationship Specialty Start Date End Date Ena Prieto NP [address] [facility] [place] [address] PCP - General Internal Medicine 02/11/25 documented as of this encounter
== END 2025-05-14 14:28 | disposition home or self-care (01) ==
LOC: HO.US 14:27
PROVIDERS: PCP Internal Medicine; Visit Provider Urology
DX: R32 Unspecified urinary incontinence (principal); N40.1 Benign prostatic hyperplasia with lower urinary tract symptoms
CPT/HCPCS: 76770

== ENCOUNTER → 2025-05-14 14:30 | Outpatient (BNV) | payer OTHER, SELFPAY | PROVIDERS: PCP Internal Medicine; Visit Provider Radiology Diagnostic Radiology | DX: N20.0 Calculus of kidney (principal); N28.1 Cyst of kidney, acquired | CPT/HCPCS: 76770 ==

== ENCOUNTER 2025-06-05 08:27 | Outpatient (REF) | payer OTHER, SELFPAY ==
[2025-06-05 10:00] LABS: PSA,Total (Free>4and<10) 1.35 ng/mL (0.00-4.00)
== END 2025-06-05 08:28 | disposition home or self-care (01) ==
LOC: HO.LAB 08:27
PROVIDERS: Visit Provider Urology
DX: N40.1 Benign prostatic hyperplasia with lower urinary tract symptoms (principal); R32 Unspecified urinary incontinence; Z12.5 Encounter for screening for malignant neoplasm of prostate
CPT/HCPCS: 36415; 84153

== ENCOUNTER 2025-06-06 10:29 | Outpatient (AMB) | payer OTHER, SELFPAY ==
--- NOTE | 2025-06-06 10:51 | A.OFFVIS_ITS ---
Intake Visit Reasons: cysto/US/PSA Intake Note: Patient presents today for a cystoscopy/US/PSA * 05/15 Retroperitoneal US Urology Medication:none Blood Thinner:none Antibiotic Allergies:none Engineer Internship Required: No Engineer Internship Services: Engineer Internship Offered & Declined Allergies No Known Allergies Allergy (Verified 06/06/25 10:51) Medication List - Last Reconciled 06/06/25 by Elsie Cole MD cyclobenzaprine 5 mg PO TID PRN diclofenac sodium 50 mg PO BID tamsulosin (Flomax) 0.4 mg PO BEDTIME HPI Comments Details: 06/06/25--Ryan is here for follow-up, he was initially evaluated on 03/29/2025 for obstructive voiding symptoms. Ultrasound retroperitoneum PSA screening. PSA 06/06/25--1.35 ng/mL. Ultrasound findings right kidney 13.4 cm simple cyst, left kidney small calculi largest 5 mm, estimated prostate volume 22 mL. Patient has history of kidney stones he has passed stones as well as had prior procedures. We will schedule left ESWL. The patient also complains urine leakage during the night he wears pads. Cystoscopy findings-bladder wall trabeculations-prominent median. History of Present Illness The patient is a 69-year-old male presenting for follow-up of obstructive voiding symptoms. He was initially evaluated on March 29, 2025, for these symptoms. An ultrasound of the retroperitoneum was performed, revealing no acute abnormalities of the kidneys, but a simple cyst was noted on the right kidney measuring 13.4 cm. Additionally, nephrolithiasis was identified, with the largest calculus measuring 5 mm in the left kidney. The patient's prostate-specific antigen (PSA) level was 1.35 ng/mL as of June 06, 2025, and the estimated prostate volume was 22.2 mL. Results - Ultrasound: No acute abnormalities of the kidneys, simple cyst on right kidney 13.4 cm, Left nephrolithiasis with largest calculus 5 mm. - Estimated prostate volume: 22.2 mL. - PSA: 1.35 ng/mL as of June 06, 2025. Plan 1. Obstructive Voiding Symptoms - Plan to start the patient on tamsulosin for management of symptoms. 2. Left Nephrolithiasis, - - schedule left ESWL 3. Urge incontinence, mainly at night, currently using pads. Symptoms may be related to bladder spasms. We will monitor patient requesting script for pads. 03/29/25- Ryan is here with his daughter who interprets for him. History of Present Illness - The patient is a 69-year-old male presenting with urinary incontinence and p rostate concerns. - Urinary incontinence is a daily issue, not improved by tamsulosin and tolterodine. - Prostate concerns are present, with urinalysis showing no infection or hematuria. - History of kidney stones, with an ultrasound planned for further evaluation. Results - Urinalysis: No blood or signs of infection - Bladder scan: Post-void residual volume of 162 mL Plan - Ultrasound of the kidneys, bladder, and prostate - PSA screening, fu office - Cystoscopy [facility] Medical History Muscle spasm of back Fatty liver History of poliomyelitis Nephrolithiasis Hyperlipidemia Surgical History No history of previous surgery Family History Father Stomach cancer Review of Systems Const All systems reviewed & are unremarkable except as noted in HPI and below Reports no additional complaints Eyes Reports no additional complaints ENT Reports no additional complaints Card Reports no additional complaints Resp Reports no additional complaints GI Reports no additional complaints Reports as per HPI Musc Reports no additional complaints Skin/Breast Reports system reviewed and no additional complaints, except as documented Neuro Reports no additional complaints Psych Reports no additional complaints Endo Reports no additional complaints Paco/Lymph Reports no additional complaints Aller/Immun Reports no additional complaints Office Procedures Cystoscopy Consent Discussed risk and benefit or proposed procedure with the patient. Information consent for procedure given to the patient. Discussed technical aspects, risks, benefits and alternatives in full. Addressed all of the patient's questions and concerns regarding the procedure. The patient demonstrated knowledge and understanding. They wish to proceed with this procedure. Preparation The patient was prepped in the usual manner. A carriage operator was present and in the room. Genitalia was prepped with betadine solution in a sterile manner. Lidocaine Jelly 2% was placed into the urethra and 16Fr flexible Olympus cystoscope was inserted into the meatus after adequate lubrication. Procedure Time out per protocol performed. The flexible cystoscope is passed transurethrally: The bladder was inspected in its entirety with utilization retroflexion displaying: Tumor(s): no suspicious bladder lesions visualized Trabeculation: Moderate with cellule changes, and small diverticuli Mucosal Erthema: Orifices: normal shape and position Urethra: normal Cystoscopy findings: prostatic urethra prominent median lobe bulbous urethra WNL, no suspicious bladder lesions visualized [id number] DISPOSABLE SCOPE URO-G FLEXIBLE SCOPE Procedure code (CPT) selection complete Office Meds lidocaine HCl 2 % mucosal jelly in applicator Performing Provider: Elsie Cole MD Performing Location: [facility] [place] [facility] Administered by: Nazia Mcdonald RN on 06/06/25 11:06 Dose Route Admin Location Dispensed Lot Number Expiration Date [facility] 10 mL intra-urethral 20 mL ciprofloxacin HCl 500 mg tablet Performing Provider: Elsie Cole MD Performing Location: [facility] [place] [facility] Administered by: Nazia Mcdonald RN on 06/06/25 11:06 Dose Route Admin Location Dispensed Lot Number Expiration Date [facility] 500 mg PO 1 tab phenazopyridine 200 mg tablet Performing Provider: Elsie Cole MD Performing Location: [facility] [place] [facility] Administered by: Nazia Mcdonald RN on 06/06/25 11:06 Dose Route Admin Location Dispensed Lot Number Expiration Date [facility] 200 mg PO 1 tab Results Reviewed Results Reviewed: Date of Service: 05/14/25 CLINICAL HISTORY: R32 - Unspecified urinary incontinence --- Additional Notes or Special Instructions: please measure prostate US Renal Comparison: None provided Findings: Right kidney normal size and echotexture, 11.8 cm length. Left kidney normal size and echotexture, 10.7 cm length. No collecting system dilatation of either kidney. There is a 13.4 x 8.2 x 12.0 cm simple appearing cyst arising from the right kidney. There are multiple small calculi within the left kidney, the largest measuring 5 mm in size. Normal color Doppler. Mild thickening of the bladder wall. Prevoid volume 197 mL. Postvoid volume 61 mL. Bilateral ureteral jets are visualized. Prostate volume estimated at 22.2 mL. IMPRESSION: 1. No acute abnormality of the kidneys. 2. Prostate volume estimated at 22.2 mL 3. There are small nonobstructing calculi within the left kidney. 4. There is a 13.4 cm simple appearing cyst arising from the right kidney. 5. Mild thickening of the bladder wall. This may be related to chronic bladder outlet obstruction. Recommend correlation with urinalysis to exclude cystitis. 3. Mild urinary retention. Assessment & Plan Assessment & Plan (1) BPH loc w urin obs/LUTS: Code(s): N40.1 - Benign prostatic hyperplasia with lower urinary tract symptoms Category: Medical (2) Urinary incontinence: Code(s): R32 - Unspecified urinary incontinence Category: Medical (3) Kidney stone on left side: Code(s): N20.0 - Calculus of kidney Category: Medical Plan Plan 1. Obstructive Voiding Symptoms - Plan to start the patient on tamsulosin for management of symptoms. 2. Left Nephrolithiasis, - - schedule left ESWL 3. Urge incontinence, mainly at night, currently using pads. Symptoms may be related to bladder spasms. We will monitor patient requesting script for pads. Orders: Orders AMB Cystoscopy Today N40.1 - Benign prostatic hyperplasia with lower urinary tract symptoms Medications: New tamsulosin (Flomax) 0.4 mg PO BEDTIME 90 caps 3RF N40.1 - Benign prostatic hyperplasia with lower urinary tract symptoms Patient Instructions: The patient had an opportunity to ask questions regarding treatment plan. The patient expressed understanding and agreement with the above treatment plan. The patient is aware they should contact our office by phone for worsening of their current condition or the appearance of new symptoms. Compliance is encouraged with any medications and followup testing that is ordered. It is a privilege to be allowed the opportunity to participate in the urologic care of your patient. If you have any questions or concerns regarding treatment for the above conditions please do not hesitate to contact me. The office telephone contact is [phone]. This note is constructed in part using voice recognition software. While every effort has been made to ensure accuracy siderographer errors may have been included. Yours sincerely, Elsie Cole MD Scribe Plan - Not visible on output: Patient was informed and verbally consented to the use of an ambient scribe for clinic note documentation during this visit. Coding Level of Care Code Est Pt Level 4 (21188) Complex EM visit Add On G2211 Diagnoses BPH loc w urin obs/LUTS N40.1 Urinary incontinence R32 Kidney stone on left side N20.0 CPT Codes Cystoscopy - CPT: 17727-[id number] ([id number])
== END 2025-06-06 11:48 | disposition home or self-care (01) ==
LOC: HO.HUSH 10:30
PROVIDERS: PCP Internal Medicine; Visit Provider Urology
DX: N40.1 Benign prostatic hyperplasia with lower urinary tract symptoms (principal); R32 Unspecified urinary incontinence; N20.0 Calculus of kidney; Z13.9 Encounter for screening, unspecified
CPT/HCPCS: 52000; 99214

== ENCOUNTER → 2025-06-06 10:29 | Outpatient (BNVA) | payer OTHER, SELFPAY | PROVIDERS: PCP Internal Medicine; Visit Provider Urology | DX: N40.1 Benign prostatic hyperplasia with lower urinary tract symptoms (principal); R32 Unspecified urinary incontinence; N20.0 Calculus of kidney | CPT/HCPCS: 52000; 81003; 99212 ==